=== PATIENT | male | born 1985 | race African-American/Black ===

== ENCOUNTER 2025-06-28 08:43 | Emergency (ER) | payer MEDICAID ==
[~2025-06-28] VITALS: Ht 167.6 cm; Wt 63.5 kg
[2025-06-28 08:49] VITALS: O2SAT 100
[2025-06-28] MEDS ORDERED: IBUP-2030 MT (09:28)
[2025-06-28] MEDS ORDERED: ACYC-58 MT (09:28)
[2025-06-28] MEDS ORDERED: LIDO-53 TP (09:28)
[2025-06-28 09:47] VITALS: BP 105/59; PULSE 64; RESP 16; TEMP 36.8; O2SAT 100
== END 2025-06-28 09:48 | disposition home or self-care (01) ==
LOC: ER 09:02
DX: B02.9 Zoster without complications (principal)
CPT/HCPCS: 99283